=== PATIENT | female | born 1980 | race Caucasian/White ===

== ENCOUNTER 2016-06-09 19:21 | Emergency (ER) | payer SELFPAY ==
[2016-06-09 19:44] LABS: COLOR RED
[2016-06-09] MEDS ORDERED: CEPHALEXIN 500 MG CAP PO ONE (19:52)
--- NOTE | 2016-06-09 19:54 | UCPHY ---
H & P Patient Type: New Chief Complaint Nursing Narrative: Hematuria, urgency, frequency since 1600hours. Time Seen by Provider: 06/09/16 19:45 HPI/ROS: CHIEF COMPLAINT: Dysuria HISTORY OF PRESENT ILLNESS: The patient is a 35-year-old female who comes to the Urgent Care complaining of dysuria for the last 6 or 7 hours. Also increased frequency and urgency and incomplete emptying. She has never had these symptoms before. She has not had any fever or flank pain. She was trying to wait until her doctor appointment tomorrow but is concerned that it is getting worse. No abdominal pain, no fevers. REVIEW OF SYSTEMS: Constitutional: denies: chills, fever, recent illness, recent injury EENTM: denies: blurred vision, double vision, nose congestion Respiratory: denies: cough, shortness of breath Cardiac: denies: chest pain, irregular heart rate, lightheadedness, palpitations Gastrointestinal/Abdominal: denies: abdominal pain, diarrhea, nausea, vomiting, blood streaked stools Genitourinary: See HPI Musculoskeletal: denies: joint pain, muscle pain Skin: denies: lesions, rash, jaundice, bruising Neurological: denies: headache, numbness, paresthesia, tingling, dizziness, weakness Hematologic/Lymphatic: denies: blood clots, easy bleeding, easy bruising Immunologic/allergic: denies: HIV/AIDS, transplant EXAM: GENERAL: Well-appearing, well-nourished and in no acute distress. HEAD: Atraumatic, normocephalic. EYES: Pupils equal round and reactive to light, extraocular movements intact, sclera anicteric, conjunctiva are normal. ENT: TMs normal, nares patent, oropharynx clear without exudates. Moist mucous membranes. NECK: Normal range of motion, supple without lymphadenopathy or JVD. LUNGS: Breath sounds clear to auscultation bilaterally and equal. No wheezes rales or rhonchi. HEART: Regular rate and rhythm without murmurs, rubs or gallops. ABDOMEN: Soft, nontender, normoactive bowel sounds. No guarding, no rebound. No masses appreciated. BACK: No CVA tenderness, no spinal tenderness, step-offs or deformities EXTREMITIES: Normal range of motion, no pitting or edema. No clubbing or cyanosis. NEUROLOGICAL: Cranial nerves II through XII grossly intact. Normal speech, normal gait. 5/5 strength, normal movement in all extremities, normal sensation PSYCH: Normal mood, normal affect. SKIN: Warm, dry, normal turgor, no visible rashes or lesions. Source: Patient Exam Limitations: No limitations - Personal History LMP (Females 10-55): 1-7 Days Ago Current Tetanus/Diphtheria Vaccine: Unsure Current Tetanus Diphtheria and Acellular Pertussis (TDAP): Unsure - Medical/Surgical History Hx Asthma: Yes Hx Chronic Respiratory Disease: No Hx Diabetes: No Hx Cardiac Disease: No Hx Renal Disease: No Hx Cirrhosis: No Hx Alcoholism: No Hx HIV/AIDS: No Hx Splenectomy or Spleen Trauma: No Other PMH: excercise induced asthma, anxiety. - Family History Significant Family History: No pertinent family hx - Social History Alcohol Use: None Drug Use: None Constitutional: Initial Vital Signs Temperature (C) 37.4 C 06/09/16 19:30 Heart Rate 118 H 06/09/16 19:30 Respiratory Rate 18 06/09/16 19:30 Blood Pressure 127/92 H 06/09/16 19:30 O2 Sat (%) 97 06/09/16 19:30 O2 Delivery Mode Room Air Allergies/Adverse Reactions: Pork/Porcine Containing Products [pork] Allergy (Severe, Verified 06/09/16 19:36 ) Hypotension Milk Containing Products [dairy] Allergy (Intermediate, Verified 06/09/16 19:36) Diarrhea Home Medications: Medication Instructions Recorded Cephalexin [Keflex] 500 mg PO TID #21 cap 06/09/16 Medical Decision Making ED Course/Re-evaluation: The patient's symptoms are consistent with urinary tract infection. Urinalysis is positive. I will start her on antibiotics. We discussed indications for returning. She declined pain medication or Pyridium. Differential Diagnosis: Partial list of the Differential diagnosis considered include but were not limited to; urinary tract infection, kidney stone, pyelonephritis and although unlikely based on the history and physical exam, I also considered hernia, appendicitis, diverticulitis, , ovarian cyst. I discussed these differential diagnoses and the plan with the patient as well as the usual and expected course. The patient understands that the diagnosis is provisional and that in medicine we are not always correct and that further workup is often warranted. Usual and customary warnings were given. All of the patient's questions were answered. The patient was instructed to return to the emergency department should the symptoms at all worsen or return, otherwise to followup with the physician as we discussed. - Data Points Laboratory Results: 06/09/16 19:39 Urine Color RED Urine Appearance HAZY Urine pH 7.0 (5.0-7.5) Ur Specific [place] <= 1.005 (1.002-1.030) Urine Protein TNP Urine Ketones TNP Urine Blood 3+ H (NEGATIVE) Urine Nitrate TNP Urine Bilirubin NEGATIVE (NEGATIVE) Urine Urobilinogen 0.2 EU EU (0.2-1.0) Ur Leukocyte Esterase TNP Urine RBC >182 /hpf H /hpf (0-3) Urine WBC 50-182 /hpf H /hpf (0-3) Ur Epithelial Cells TRACE /lpf /lpf (NONE-1+) Urine Bacteria 1+ /hpf H /hpf (NONE SEEN) Ur Culture Indicated? INDICATED H (NI) Urine Glucose NEGATIVE (NEGATIVE) Medications Given: Discontinued Medications Cephalexin HCl (Keflex) 500 mg PO EDNOW ONE PRN Reason: Protocol Stop: 06/09/16 19:53 Last Admin: 06/09/16 20:10 Dose: 500 mg Departure - Departure Disposition: Home, Routine, Self-Care Clinical Impression: Urinary tract infection Qualifiers: Urinary tract infection type: acute cystitis Hematuria presence: with hematuria Qualified Code(s): N30.01 - Acute cystitis with hematuria Condition: Fair Instructions: Urinary Tract Infection in Women (ED) Referrals: CONNOR MARTINEZ [Primary Care Provider] - As per Instructions Prescriptions: Cephalexin [Keflex] 500 mg PO TID #21 cap - PQRS PQRS Measurement: Not applicable
[2016-06-09 19:55] LABS: BACTERIA 1+ /hpf (NONE SEEN); RBC,URINE >182 /hpf (0-3); WBC,URINE 50-182 /hpf (0-3)
[2016-06-09 20:30] VITALS: BP 130/88; PULSE 99; RESP 20; TEMP 99; O2SAT 95
== END 2016-06-09 20:29 | disposition home or self-care (01) ==
LOC: CED 19:21
DX: N30.01 Acute cystitis with hematuria (principal)
CPT/HCPCS: 81003-PO; 81015-PO; G0463-PO